=== PATIENT | female | born 1995 | race African-American/Black ===

== ENCOUNTER 2017-01-15 19:18 | Emergency (ER) | payer OTHER ==
[~2017-01-15] VITALS: Ht 160 cm; Wt 59.0 kg
[~2017-01-15 19:18] MED LIST: NITR100C62 PO
[2017-01-15 19:40] VITALS: BP 135/100
[2017-01-15] MEDS ORDERED: PROAIR HFA8.5 GM INH (19:44)
[2017-01-15] MEDS ORDERED: FLUT12AE IH (19:44)
--- NOTE | 2017-01-15 19:46 | PHYS DOC ---
Past Medical History Past Medical History: No Pertinent History Past Surgical History: Alcohol Use: None Drug Use: None Adult General Chief Complaint Chief Complaint: Congestion HPI HPI Patient is a 21 year old female presents to the emergency department the three- day history of cough. Patient states that she has had mold in her apartment and feels this is contributing to her cough her children mother same symptoms. She reports no fever, no shortness of breath. Reports no history of asthma. She is 11 weeks gestation. 4 para 2 spontaneous 1. Patient has been using Benadryl [id number] to assist with management of the symptoms. Review of Systems Review of Systems Constitutional: Denies fever or chills [] Eyes: Denies change in visual acuity, redness, or eye pain [] HENT: Denies nasal congestion or sore throat [] Respiratory: Cough Cardiovascular: No additional information not addressed in HPI [] GI: Denies abdominal pain, nausea, vomiting, bloody stools or diarrhea [] : Denies dysuria or hematuria [] Musculoskeletal: Denies back pain or joint pain [] Integument: Denies rash or skin lesions [] Neurologic: Denies headache, focal weakness or sensory changes [] Endocrine: Denies polyuria or polydipsia [] Allergies Allergies Allergies Coded Allergies Type Severity Reaction Last Updated Verified No Known Drug Allergies 12/22/13 No Physical Exam Physical Exam Constitutional: Well developed, well nourished, no acute distress, non-toxic appearance. [] HENT: Normocephalic, atraumatic, bilateral external ears normal, oropharynx moist, no oral exudates, nose normal. [] Eyes: PERRLA, EOMI, conjunctiva normal, no discharge. [] Neck: Normal range of motion, no tenderness, supple, no stridor. [] Cardiovascular:Heart rate regular rhythm, no murmur [] Lungs & Thorax: Sounds diminished throughout without wheezing, symmetrical chest wall movement with respiration x-ray showed. Patient does have a bronchial cough while in the emergency department Abdomen: Bowel sounds normal, soft, no tenderness, no masses, no pulsatile masses. [] Skin: Warm, dry, no erythema, no rash. [] Back: No tenderness, no CVA tenderness. [] Extremities: No tenderness, no cyanosis, no clubbing, ROM intact, no edema. [] Neurologic: Alert and oriented X 3, normal motor function, normal sensory function, no focal deficits noted. [] Psychologic: Affect normal, judgement normal, mood normal. [] EKG EKG [] Radiology/Procedures Radiology/Procedures [] Course & Med Decision Making Course & Med Decision Making Pertinent Labs and Imaging studies reviewed. (See chart for details) [Patient is 11 weeks gestation and will not be prescribed oral steroids. She will be prescribed Flovent and albuterol. Encouraged to utilize Benadryl over- the-counter as labeled and is indicated for symptom management. She was given return to the emergency department precautions. Patient verbalized understanding. Discharged In stable condition. Dragon Disclaimer Dragon Disclaimer This electronic medical record was generated, in whole or in part, using a voice recognition dictation system. Departure Departure Impression: Primary Impression: Bronchitis Disposition: 01 HOME, SELF-CARE Condition: STABLE [facility] Patient Instructions: Acute Bronchitis Additional Instructions: 2 Gen. [id number] as labeled and is indicated for symptom management Scripts Albuterol Sulfate (PROAIR HFA INHALER) 8.5 Gm Hfa.aer.ad 1 PUFF INH PRN Q6HRS Y for SHORTNESS OF BREATH, #1 INHALER 0 Refills Prov: JOSE SMITH APRN 01/15/17 Fluticasone Propionate (FLOVENT 110MCG HFA) 12 Gm Aer.w.adap 2 PUFF IH BID, #1 INHALER 2 Refills Prov: JOSE SMITH APRN 01/15/17 JOSE SMITH APRN Jan 15, 2017 19:46
== END 2017-01-15 19:53 | disposition home or self-care (01) ==
LOC: ER 19:18
DX: O99.511 Diseases of the respiratory system complicating pregnancy, first trimester (principal); J40 Bronchitis, not specified as acute or chronic; Z3A.11 11 weeks gestation of pregnancy
CPT/HCPCS: 99283

== ENCOUNTER 2017-02-20 17:14 | Emergency (ER) | payer OTHER ==
[~2017-02-20] VITALS: Ht 180.3 cm; Wt 64.7 kg
[~2017-02-20 17:14] MED LIST changes: +FLUT12AE IH; +PROAIR HFA8.5 GM INH
--- NOTE | 2017-02-20 19:58 | PHYS DOC ---
Past Medical History Past Medical History: No Pertinent History Past Surgical History: , Other Additional Past Surgical Histo: dilation and curretage Alcohol Use: None Drug Use: None Adult General Chief Complaint Chief Complaint: ABDOMINAL PAIN IN HPI HPI Patient is a 21 year old F who presents with abdominal pain and a headache and she is 4 months . Patient is A1 who states that for the past day she's had some lower abdominal pain with no vaginal discharge or bleeding. Patient states she's had a migraine headache off-and-on for the past week in which she's been taking Excedrin Migraine. Patient denies any fevers. Patient denies any dysuria. Patient denies any problems with this thus far. Patient has no other complaints. Review of Systems Review of Systems GEN: Denies fevers, chills, sweats HEENT: Denies blurred vision, sore throat CV: Denies chest pain RESP: Denies shortness of air, cough GI: Abdominal pain NEURO: Headache MSK: Denies weakness, joint pain/swelling Current Medications Current Medications Current Medications Medications (Trade) Dose Ordered Sig/Jolly Start Time Stop Time Status Last Admin Dose Admin Acetaminophen (Tylenol) 1,000 mg 1X ONCE 02/20/17 20:30 02/20/17 20:31 DC 02/20/17 20:50 1,000 MG Sodium Chloride 1,000 ml @ 1,000 mls/hr 1X ONCE 02/20/17 20:30 02/20/17 21:27 DC 02/20/17 20:50 1,000 MLS/HR Allergies Allergies Allergies Coded Allergies Type Severity Reaction Last Updated Verified No Known Drug Allergies 12/22/13 No Physical Exam Physical Exam GEN.: No apparent distress. Alert and oriented. HEENT: Head is normocephalic, atraumatic NECK: Supple. LUNGS: CTAB. HEART: RRR, S1, S2 present. Peripheral pulses intact ABDOMEN: Soft, mild generalized tenderness with a gravid uterus, no rebound tenderness. Positive bowel sounds. EXTREMITIES: Without any cyanosis. NEUROLOGIC: Normal speech, normal tone, cranial nerves II through XII are grossly intact without any focal neurological deficits PSYCHIATRIC: Normal affect, normal mood. SKIN: No ulcerations Current Patient Data Vital Signs Vital Signs Date Time Temp Pulse Resp B/P (MAP) Pulse Ox O2 Delivery O2 Flow Rate FiO2 02/20/17 20:49 72 114/62 (79) 99 Room Air 02/20/17 18:17 98.2 16 98.2 Lab Values Laboratory Tests Test 02/20/17 18:20 02/20/17 18:35 02/20/17 18:41 Urine Collection Type Unknown Urine Color Yellow Urine Clarity Clear Urine pH 7.0 Urine Specific [place] 1.010 Urine Protein Negative mg/dL (NEG-TRACE) Urine Glucose (UA) Negative mg/dL (NEG) Urine Ketones (Stick) Negative mg/dL (NEG) Urine Blood Negative (NEG) Urine Nitrite Negative (NEG) Urine Bilirubin Negative (NEG) Urine Urobilinogen Dipstick 0.2 mg/dL (0.2 mg/dL) Urine Leukocyte Esterase Negative (NEG) Urine RBC 0 /HPF (0-2) Urine WBC 0 /HPF (0-4) Urine Squamous Epithelial Cells Few /LPF Urine Bacteria Few /HPF (0-FEW) White Blood Count 11.1 x10^3/uL (4.0-11.0) H Red Blood Count 3.87 x10^6/uL (3.50-5.40) Hemoglobin 11.6 g/dL (12.0-15.5) L Hematocrit 34.9 % (36.0-47.0) L Mean Corpuscular Volume 90 fL (79-100) Mean Corpuscular Hemoglobin 30 pg (25-35) Mean Corpuscular Hemoglobin Concent 33 g/dL (31-37) Red Cell Distribution Width 13.6 % (11.5-14.5) Platelet Count 269 x10^3/uL (140-400) Neutrophils (%) (Auto) 71 % (31-73) Lymphocytes (%) (Auto) 19 % (24-48) L Monocytes (%) (Auto) 9 % (0-9) Eosinophils (%) (Auto) 1 % (0-3) Basophils (%) (Auto) 1 % (0-3) Neutrophils # (Auto) 7.8 x10^3uL (1.8-7.7) H Lymphocytes # (Auto) 2.1 x10^3/uL (1.0-4.8) Monocytes # (Auto) 1.0 x10^3/uL (0.0-1.1) Eosinophils # (Auto) 0.1 x10^3/uL (0.0-0.7) Basophils # (Auto) 0.1 x10^3/uL (0.0-0.2) Sodium Level 137 mmol/L (136-145) Potassium Level 3.5 mmol/L (3.5-5.1) Chloride Level 101 mmol/L (98-107) Carbon Dioxide Level 26 mmol/L (21-32) Anion Gap 10 (6-14) Blood Urea Nitrogen 8 mg/dL (7-20) Creatinine 0.6 mg/dL (0.6-1.0) Estimated GFR (Cockcroft-Gault) 149.9 BUN/Creatinine Ratio 13 (6-20) Glucose Level 56 mg/dL (70-99) L Calcium Level 9.2 mg/dL (8.5-10.1) Total Bilirubin 0.5 mg/dL (0.2-1.0) Aspartate Amino Transferase (AST) 15 U/L (15-37) Alanine Aminotransferase (ALT) 21 U/L (14-59) Alkaline Phosphatase 44 U/L (46-116) L Total Protein 7.2 g/dL (6.4-8.2) Albumin 3.4 g/dL (3.4-5.0) Albumin/Globulin Ratio 0.9 (1.0-1.7) L POC Urine HCG, Qualitative Hcg positive (Negative) Laboratory Tests 02/20/17 18:35 Laboratory Tests 02/20/17 18:35 EKG EKG [] Radiology/Procedures Radiology/Procedures [] Course & Med Decision Making Course & Med Decision Making Pertinent Labs and Imaging studies reviewed. (See chart for details) ED course: Patient was seen and examined emergency room CBC, CMP, UA were ordered 8: Limited bedside, was done by myself which showed a live IUP with a heartbeat and movement 2107: On reevaluation updated patient on lab work in which patient's feeling better and is ready go home. Recommended patient follow-up with her PCP for the headache and her OPTICAL MECHANIC APPRENTICE for her abdominal pain. Recommended pelvic rest until follow-up with her OPTICAL MECHANIC APPRENTICE. MDM: After reviewing the chart, CC/HPI/PMH, physical exam, [lab results], I do not believe the patient has emergent medical condition warranting further workup and /or admission at this time. I do not believe the patient has any concerning neuro deficits that would warrant obtaining a CT scan of the head in a woman at this time. I do not believe the patient is having any OPTICAL MECHANIC APPRENTICE emergency warranting an official ultrasound at this time. I believe the patient is stable for discharge. Recommended follow-up with her PCP and OPTICAL MECHANIC APPRENTICE. Encourage the patient a pelvic rest until follow-up. Additional verbal discharge instructions were provided to the patient and that if symptoms get worse or any new symptoms arise that are worrisome to the patient she is to return to the emergency room immediately [] Dragon Disclaimer Dragon Disclaimer This electronic medical record was generated, in whole or in part, using a voice recognition dictation system. Departure Departure Impression: Primary Impression: Headache Additional Impression: Abdominal pain affecting Disposition: 01 HOME, SELF-CARE Condition: IMPROVED Referrals: NO PCP (PCP) Patient Instructions: Abdominal Pain During , General Headache Without Cause Additional Instructions: Please follow-up with your OPTICAL MECHANIC APPRENTICE and PCP for further evaluation and management in the next one to 2 days Problem Qualifiers TAYLOR RUBIN DO Feb 20, 2017 19:58
[2017-02-20 20:28] LABS: BASO # 0.1 x10^3/uL (0.0-0.2); BASO % 1 % (0-3); EOS % 1 % (0-3); HEMATOCRIT 34.9 % (36.0-47.0); HEMOGLOBIN 11.6 g/dL (12.0-15.5); LYMPH # 2.1 x10^3/uL (1.0-4.8); LYMPH % 19 % (24-48); MEAN CORPUSCULAR HEMOGLOBIN 30 pg (25-35); MEAN CORPUSCULAR HGB CONC 33 g/dL (31-37); MEAN CORPUSCULAR VOLUME 90 fL (79-100); MONO % 9 % (0-9); NEUT % 71 % (31-73); PLATELET COUNT 269 x10^3/uL (140-400); RED BLOOD COUNT 3.87 x10^6/uL (3.50-5.40); RED CELL DISTRIBUTION WIDTH 13.6 % (11.5-14.5); WHITE BLOOD COUNT 11.1 x10^3/uL (4.0-11.0)
[2017-02-20 20:28] LABS: BILIRUBIN,URINE NEGATIVE (NEG); GLUCOSE,URINE NEGATIVE (NEG); NITRITE,URINE NEGATIVE (NEG); PROTEIN,URINE NEGATIVE (NEG-TRACE); UROBILINOGEN,URINE 0.2 mg/dL (0.2 mg/dL)
[2017-02-20] MEDS ORDERED: IV NORMAL SALINE 1000ML BAG 1,000 ML IV ONE (20:30)
[2017-02-20] MEDS ORDERED: ACETAMINOPHEN 500 MG TABLET PO ONE (20:30)
[2017-02-20 20:34] LABS: BACTERIA,URINE FEW /HPF (0-FEW); RBC,URINE 0 /HPF (0-2); SQUAMOUS EPITHELIAL CELL,UR FEW /LPF; WBC,URINE 0 /HPF (0-4)
[2017-02-20 20:41] LABS: CALCIUM 9.2 mg/dL (8.5-10.1); CREATININE 0.6 mg/dL (0.6-1.0); GFR 149.9; POTASSIUM 3.5 mmol/L (3.5-5.1)
[2017-02-20 20:47] LABS: ALBUMIN 3.4 g/dL (3.4-5.0); ALBUMIN/GLOBULIN RATIO 0.9 (1.0-1.7); TOTAL BILIRUBIN 0.5 mg/dL (0.2-1.0); TOTAL PROTEIN 7.2 g/dL (6.4-8.2)
[2017-02-20 20:49] VITALS: BP 114/62
== END 2017-02-20 21:26 | disposition home or self-care (01) ==
LOC: ER 17:14
DX: O26.892 Other specified pregnancy related conditions, second trimester (principal); R51 Headache
CPT/HCPCS: 36415; 80053; 81001; 81025; 85025; 96360; 99285; J7030

== ENCOUNTER 2021-07-30 23:18 | Emergency (ER) | payer MEDICAID, OTHER ==
[~2021-07-30] VITALS: Ht 154.9 cm; Wt 71.3 kg
[~2021-07-30 23:18] MED LIST changes: +ALBU2.5V8 INH; -PROAIR HFA8.5 GM INH
[2021-07-30 23:35] VITALS: BP 117/83
--- NOTE | 2021-07-31 00:08 | PHYS DOC ---
Past Medical History Past Medical History: No Pertinent History Past Surgical History: , Other Additional Past Surgical Histo: dilation and curretage Smoking Status: Never Smoker Alcohol Use: None Drug Use: None General Adult EDM: Chief Complaint: SORE THROAT HPI: HPI: Patient is a 25-year-old female who presents to the emergency department for sore throat that started today. Patient is also concerned because she has a sore area to her left inner cheek. Patient denies fever, nausea, vomiting, cough, sick exposure, travel. Review of Systems: Review of Systems: Constitutional: See HPI HENT: See HPI Respiratory: See HPI GI: See HPI Heart Score: C/O Chest Pain: N/A Risk Factors: Risk Factors: DM, Current or recent (<one month) smoker, HTN, HLP, family history of CAD, obesity. Risk Scores: Score 0 - 3: 2.5% MACE over next 6 weeks - Discharge Home Score 4 - 6: 20.3% MACE over next 6 weeks - Admit for Clinical Observation Score 7 - 10: 72.7% MACE over next 6 weeks - Early Invasive Strategies Allergies: Allergies: Allergies Coded Allergies Type Severity Reaction Last Updated Verified No Known Drug Allergies 12/22/13 No Physical Exam: PE: Constitutional: Well developed, well nourished, no acute distress, non-toxic appearance. [] HENT: Normocephalic, atraumatic, bilateral external ears normal, oropharynx moist,post nasal drainage noted, uvula midline, no trismus, no phonation changes, patient maintaining secretions, cobblestoning noted, no tonsillar enlargment/exudate or erythema, no oral exudates,less than 0.5 cm curved laceration noted with l. cheek with no active bleeding, nose normal. [] Eyes: PERRL, EOMI, conjunctiva normal, no discharge. [] Neck: Normal range of motion, no tenderness, no palpable cervical lymphadenopathy, supple, no stridor. [] Cardiovascular:normal peripheral perfusion Lungs & Thorax: normal WOB, no tachypnea Abdomen: soft and flat Skin: Warm, dry, no erythema, no rash. [] Back: No tenderness, normal ROM Extremities: No tenderness, no cyanosis, no clubbing, ROM intact, no edema. [] Neurologic: Alert and oriented X 3, normal motor function, normal sensory function, no focal deficits noted. [] Psychologic: Affect normal, judgement normal, mood normal. [] Current Patient Data: Vital Signs: Vital Signs Date Time Temp Pulse Resp B/P (MAP) Pulse Ox O2 Delivery O2 Flow Rate FiO2 07/30/21 23:35 98.4 57 18 117/83 (94) 98 Room Air 98.4 EKG: EKG: [] Radiology/Procedures: Radiology/Procedures: [] Course & Med Decision Making: Course & Med Decision Making Pertinent Labs and Imaging studies reviewed. (See chart for details) [] Patient resents to the emergency department for sore throat. Strep testing performed that was negative. Patient is also reporting a sore spot to her left cheek, it appears that patient has bitten her cheek and she has a small curved laceration to her left cheek that is less than 0.5 cm with no active bleeding. There is no surrounding signs of infection like redness or swelling. Patient educated on symptomatic treatment for her sore throat. Likely viral in nature. I discussed with patient all findings and diagnostic testing as well as the need to follow-up with PCP for further evaluation and treatment or return to the ER if any new or worsening symptoms. Strict return precautions were also discussed at length. Patient voiced understanding and agreement with the plan. Patient is hemodynamically stable at the time of disposition. Elijah Disclaimer: Elijah Disclaimer: This electronic medical record was generated, in whole or in part, using a voice recognition dictation system. Departure Departure Impression: Primary Impression: Pharyngitis Qualified Codes: J02.9 - Acute pharyngitis, unspecified Disposition: HOME / SELF CARE / HOMELESS Condition: GOOD Referrals: NO PCP (PCP) Patient Instructions: Viral Pharyngitis Additional Instructions: You are seen in the emergency department today for sore throat. Your rapid strep test was negative. Your sore throat is likely viral in nature. You can take Tylenol and ibuprofen for pain at home and you can perform warm salt water gargles. You may benefit from a daily zyrtec. Follow-up with your primary care provider within a week. Return to the emergency department if you develop worsening of your sore throat, inability to maintain secretions, intractable vomiting, high fevers refractory to treatment. ARMIN MARIN APRN Jul 31, 2021 00:08
== END 2021-07-31 01:09 | disposition home or self-care (01) ==
LOC: ER 23:18
DX: J02.9 Acute pharyngitis, unspecified (principal)
CPT/HCPCS: 87070; 87880; 99283